=== PATIENT | female | born 1945 | race Hispanic/Latino ===

== ENCOUNTER 2020-05-11 19:36 | Emergency (ER) | payer MEDICARE, OTHER ==
[2020-05-11 21:05] LABS: #Basophils 0.1 thou/uL (0.0-0.2); #Eosinphils 0.1 thou/uL (0.0-0.7); #Lymphocytes 1.8 thou/uL (1.20-3.40); #Monocytes 0.5 thou/uL (0.11-0.59); #Neutrophils 5.7 thou/uL (1.40-6.50); %Basophils 0.9 % (0.0-1.0); Hemoglobin 10.8 g/dL (12.0-16.0); Mean Corpuscular HGB CONC 33.2 g/dL (32.0-36.0); Mean Corpuscular Hemoglobin 27.6 pg (27.0-31.0); Mean Corpuscular Volume 83.1 fL (78.0-98.0); Mean Platelet Volume 9.9 fL (7.4-10.4); Platelet Count 179 thou/uL (130-400); RBC Distribution Width 12.7 % (11.5-14.5); White Blood Cell (WBC) Count 8.2 thou/uL (4.8-10.8)
[2020-05-11 21:26] LABS: ALT (SGPT) 18 U/L (8-55); AST (SGOT) 18 U/L (5-34); Albumin 3.6 g/dL (3.4-4.8); Alkaline Phosphatase 91 U/L (40-110); Anion Gap 11 mmol/L (10-20); BUN (Urea Nitrogen) 14 mg/dL (9.8-20.1); Bilirubin, Total 0.6 mg/dL (0.2-1.2); Calc. Creatinine Clearance 0 mL/min (70-130); Calcium 9.3 mg/dL (7.8-10.44); Carbon Dioxide 27 mmol/L (23-31); Chloride 98 mmol/L (98-107); Estimated GFR-MDRD 34; Globulin 3.4 g/dL (2.4-3.5); Glucose 297 mg/dL (83-110); Potassium 3.3 mmol/L (3.5-5.1); Sodium 133 mmol/L (136-145)
--- NOTE | 2020-05-11 21:33 | CT ---
CT HEAD WITHOUT CONTRAST; 05/11/20 INDICATIONS: Fall. Comparison made to head CT of 07/16/12. There is cortical atrophy with prominent frontal lobe atrophy. Ventricles have normal size considerin g the degree of atrophy. No evidence of intracranial hemorrhage. No mass or infarct identified. The sinuses appear clear. IMPRESSION: No acute intracranial process. POS: AGW
--- NOTE | 2020-05-11 21:35 | CT ---
CT CERVICAL SPINE: 05/11/20 INDICATIONS: Fall with injury. Cervical vertebrae maintain height and alignment. There are mild to moderate degenerative changes pre sent throughout the cervical spine with loss of disc space, spondylosis, and osteophytes from the cer vical vertebrae. There is no evidence of cervical spine fracture. IMPRESSION: 1. Degenerative changes of the cervical spine. No evidence of cervical spine fracture. 2. Incidentally noted are numerous nodules within the thyroid. There is a calcified nodule in th e inferior right thyroid lobe. POS: AGW
--- NOTE | 2020-05-11 21:40 | RAD ---
PORTABLE CHEST: 05/11/20 HISTORY: Fall. Lungs are clear. No infiltrate. Heart and mediastinum unremarkable. IMPRESSION: No acute process. POS: AGW
--- NOTE | 2020-05-11 21:41 | RAD ---
RIGHT HIP: 05/11/20 Two views. HISTORY: Fall with injury to hip. No fracture identified. Mild degenerative change. IMPRESSION: No acute fracture identified. POS: AGW
[2020-05-11 22:57] LABS: Bilirubin Negative (Negative); Blood, Urine Negative (Negative); Clarity Clear (Clear); Glucose, Urine (Dipstick) 500 mg/dL (Negative); Ketone, Urine Negative (Negative); Leukocyte 25 Leu/uL (Negative); Nitrite Negative (Negative); Protein, Urine (Dipstick) Negative (Neg-Trace); RBC/HPF 0-3 HPF (0-3); Specific Gravity, Urine 1.006 (1.002-1.036); Squamous Epithelial None Seen HPF (0-3); Urobilinogen Normal mg/dL (Less than 2); WBC/HPF 0-3 HPF (0-3)
[2020-05-11 23:08] LABS: Bacteria/HPF Rare-Few HPF (None Seen)
== END 2020-05-11 23:59 | disposition home or self-care (01) ==
LOC: ERS 19:36
DX: S09.90XA Unspecified injury of head, initial encounter (principal); M25.551 Pain in right hip; E11.9 Type 2 diabetes mellitus without complications; I10 Essential (primary) hypertension; E78.00 Pure hypercholesterolemia, unspecified; Z79.84 Long term (current) use of oral hypoglycemic drugs; Z79.899 Other long term (current) drug therapy; W18.11XA Fall from or off toilet without subsequent striking against object, initial encounter
CPT/HCPCS: 36415; 70450; 71045; 72125; 80053; 81003; 81015; 84484; 85025; 93005

== ENCOUNTER 2020-05-15 10:26 | Inpatient (IN) | payer MEDICARE, OTHER ==
--- NOTE | 2020-05-15 11:22 | CT ---
EXAM: CT brain without contrast HISTORY: Fall and altered mental status. COMPARISON: 05/11/2020 TECHNIQUE: Multiple contiguous axial images were obtained and a CT of the brain without contrast. FINDINGS: There are scattered hypodensities in the subcortical and periventricular white matter consi stent with small vessel ischemic disease. There is no evidence of hydrocephalus, intracranial hemorrhage, or extra-axial fluid collection. The calvarium and overlying soft tissues are unremarkable. The visualized paranasal sinuses and masto id air cells are well aerated. IMPRESSION: No evidence of acute intracranial abnormality Dr. Torres notified of the findings at 11:20 AM on 05/15/2020.
--- NOTE | 2020-05-15 11:44 | RAD ---
EXAM: Single view of the chest HISTORY: Fever and chills COMPARISON: 05/11/2020 FINDINGS: Single view of the chest shows a normal sized cardiomediastinal silhouette. There is no chantale dence of consolidation, mass, or pleural effusion. The bones are unremarkable IMPRESSION: No evidence of acute cardiopulmonary disease
[2020-05-15 11:45] LABS: ALT (SGPT) 13 U/L (8-55); AST (SGOT) 13 U/L (5-34); Albumin 3.8 g/dL (3.4-4.8); Alkaline Phosphatase 97 U/L (40-110); Anion Gap 14 mmol/L (10-20); BUN (Urea Nitrogen) 16 mg/dL (9.8-20.1); Bilirubin, Total 0.8 mg/dL (0.2-1.2); Calc. Creatinine Clearance 0 mL/min (70-130); Calcium 9.1 mg/dL (7.8-10.44); Carbon Dioxide 27 mmol/L (23-31); Chloride 98 mmol/L (98-107); Estimated GFR-MDRD 35; Globulin 3.8 g/dL (2.4-3.5); Glucose 247 mg/dL (83-110); Magnesium 1.3 mg/dL (1.6-2.6); Potassium 3.8 mmol/L (3.5-5.1); Protein, Total 7.6 g/dL (6.0-8.3); Sodium 135 mmol/L (136-145)
[2020-05-15] MEDS ORDERED: Aspirin 325 MG TAB ONE (11:57)
[2020-05-15 12:08] LABS: CKMB 0.8 ng/mL (0-6.6)
[2020-05-15 12:17] LABS: #Basophils 0.1 thou/uL (0.0-0.2); #Eosinphils 0.1 thou/uL (0.0-0.7); #Lymphocytes 1.7 thou/uL (1.20-3.40); #Monocytes 0.6 thou/uL (0.11-0.59); %Basophils 0.6 % (0.0-1.0); %Eosinophils 0.4 % (0.0-10.0); %Monocytes 4.9 % (0.0-10.0); %Neutrophils 80.1 % (42.0-75.0); Hemoglobin 11.9 g/dL (12.0-16.0); Mean Corpuscular HGB CONC 33.3 g/dL (32.0-36.0); Mean Corpuscular Hemoglobin 27.9 pg (27.0-31.0); Mean Corpuscular Volume 83.8 fL (78.0-98.0); Mean Platelet Volume 9.6 fL (7.4-10.4); Platelet Count 211 thou/uL (130-400); RBC Distribution Width 12.8 % (11.5-14.5); Red Blood Cell (RBC) Count 4.25 mill/uL (4.20-5.40); White Blood Cell (WBC) Count 12.5 thou/uL (4.8-10.8)
[2020-05-15 13:02] LABS: Bilirubin Negative (Negative); Blood, Urine Negative (Negative); Clarity Clear (Clear); Glucose, Urine (Dipstick) 50 mg/dL (Negative); Ketone, Urine Negative (Negative); Leukocyte Negative Leu/uL (Negative); Nitrite Negative (Negative); Protein, Urine (Dipstick) Negative (Neg-Trace); Specific Gravity, Urine 1.011 (1.002-1.036); Urobilinogen Normal mg/dL (Less than 2)
[2020-05-15] MEDS ORDERED: Magnesium 2 GM/50 ML BAG (IN WATER) ONE (13:48)
[2020-05-15 15:24] LABS: Troponin I 0.016 ng/mL (< 0.028)
[2020-05-15 17:23] LABS: Troponin I 0.044 ng/mL (< 0.028)
[2020-05-15] MEDS ORDERED: Dextrose 50% Abboject 50 ML SYRINGE SLOW IVP PRN (18:14)
[2020-05-15] MEDS ORDERED: Dextrose 5% in Water 1,000 ML IV PRN (18:14)
[2020-05-15 18:28] VITALS: BMI 22.4
[2020-05-15] MEDS ORDERED: Lisinopril/Hydrochlorothiazide 20/25 mg Tablet PO SCH (18:45)
[2020-05-15] MEDS: metFORMIN 500 MG TAB PO SCH (20:39)
[2020-05-15] MEDS: Atorvastatin Calcium 40 MG TAB PO SCH (20:39)
[2020-05-15] MEDS: Insulin Glargine 6 UNITS in Pre-Filled Syringe 1 EACH SC SCH (20:40)
[2020-05-15] MEDS ORDERED: Atorvastatin Calcium 40 MG TAB PO SCH (21:00)
--- NOTE | 2020-05-15 23:16 | HP ---
CHIEF COMPLAINT: Generalized weakness and right-sided weakness. HISTORY OF PRESENT ILLNESS: The patient is a 74-year-old female with a history of hypertension and diabetes, who was brought in today with worsening mentation and also expressive aphasia and right-sided weakness. The patient's daughter, Arleth was called. Most of the history was obtained from her. The patient apparently lives with a grandchild and was noted to have some issues with her right lower extremity, which has been ongoing since December. She was getting therapy for this. However, Arleth told me that Sunday morning, the patient woke up and had significant weakness on the right side. She actually fell and at this time, she was brought into the hospital for further evaluation. The patient underwent an evaluation and then was noted to have weakness on the right lower extremity and was discharged home. However, the patient continued to worsen as the day has progressed to the point that she is very fluent in [place] and was unable to speak in Azerbaijani except for a few words. The patient was then brought into the hospital for further evaluation. REVIEW OF SYSTEMS: Unable to obtain. FAMILY HISTORY: No history of heart disease or stroke. PAST MEDICAL HISTORY: She has a history of diabetes, hypertension, high cholesterol, and anemia. ALLERGIES: SHE HAS NO KNOWN DRUG ALLERGIES. MEDICATIONS: Her medications are as of the following, she is on; 1. Lisinopril-hydrochlorothiazide 20-25 one p.o. daily. 2. Metformin 1000 units b.i.d. 3. Bydureon 2 mg injection daily. 4. Atorvastatin 80 mg p.o. daily. PAST SURGICAL HISTORY: She has had a partial hysterectomy per family. PHYSICAL EXAMINATION: VITAL SIGNS: Temperature of 98.8, blood pressure 174/98, pulse 75, respirations are 14, and 96% on room air. GENERAL: She is awake and follow commands. CV: S1 and S2 present. No murmurs, rubs, or gallops. LUNGS: Clear to auscultation. No rhonchi or wheezes noted. ABDOMEN: Soft and nontender. Bowel sounds are present x2. EXTREMITIES: No edema. Pedal pulses are present x2. NEUROLOGIC: Neurovascular weldon, she does have weakness on the right upper extremity and right lower extremity. She is able to move her left upper and left lower extremity. She is able to follow commands. Sensation has decreased on the right side also compared to the left side. SKIN: No cuts, lesions, or bruises noted. LABORATORY DATA: Her laboratory results are as of following; sodium of 135, potassium of 3.8, BUN of 16, creatinine of 1.45, and glucose of 247. Troponins of 0.035. Her COVID rapid test was negative. BNP was 13.2. Magnesium was 1.3, which was replaced. WBCs of 12.5, hemoglobin of 11.9, hematocrit of 35.6, and platelets of 211. Her EKG did not show any acute ST changes. Her CT brain was negative. X-ray did not show any acute abnormalities. She did have a CT of her cervical spine, which indicated that she had numerous nodules within the thyroid. ASSESSMENT AND PLAN: The patient is a 74-year-old female, who presents to the hospital with complaints of weakness of the right side. 1. Stroke. The patient is not on aspirin. We will start her on aspirin. She is already on statin. We will check a lipid panel. We will check a hemoglobin A1c. We will get Neurology on-board. We will get MRI brain, echocardiogram, and carotid Dopplers. She is to be out of the window for any intervention at this point. Neurology again as I mentioned has been consulted. PT and OT and Speech. She did pass her bedside speech eval. 2. Hypertension. We will continue to monitor. I am not going to give treatment; however, this has been a few days. If her blood pressure gets too high, may have to treat her with some antihypertensives or may even resume because this has been going on since Sunday. 3. Diabetes. We will check her Accu-Cheks before meals and at bedtime. We will continue her metformin and start her on a sliding scale p.r.n. insulin. 4. Hyperlipidemia. We will continue her statin. 5. Deep venous thrombosis prophylaxis. We will put the patient on sequential compression devices and subcu Lovenox. Job ID: [id number]
--- NOTE | 2020-05-16 00:29 | ULT ---
CAROTID DOPPLER: Date: 05/15/2020 Ultrasound Doppler study is performed on the extracranial carotid arteries. Color Doppler, spectral a nalysis, and velocity recordings obtained. INDICATION: Stroke. FINDINGS: Ultrasound images show mild intimal thickening and mild echogenic plaque in the bulb regions. Velocity recordings are normal bilaterally. There is no evidence of hemodynamically significant steno sis. Vertebral arteries show antegrade flow. IMPRESSION: 1. Mild intimal thickening and mild echogenic plaque by ultrasound. 2. No evidence of significant stenosis identified by Doppler velocity. POS: AGW
[2020-05-16 05:15] LABS: #Basophils 0.1 thou/uL (0.0-0.2); #Eosinphils 0.1 thou/uL (0.0-0.7); #Lymphocytes 2.5 thou/uL (1.20-3.40); #Monocytes 0.6 thou/uL (0.11-0.59); #Neutrophils 6.4 thou/uL (1.40-6.50); %Basophils 0.8 % (0.0-1.0); %Eosinophils 1.3 % (0.0-10.0); %Lymphocytes 25.7 % (21.0-51.0); %Monocytes 6.2 % (0.0-10.0); %Neutrophils 66.1 % (42.0-75.0); Hemoglobin 11.3 g/dL (12.0-16.0); Mean Corpuscular HGB CONC 32.1 g/dL (32.0-36.0); Mean Corpuscular Hemoglobin 26.6 pg (27.0-31.0); Mean Platelet Volume 9.4 fL (7.4-10.4); Platelet Count 229 thou/uL (130-400); RBC Distribution Width 12.8 % (11.5-14.5); Red Blood Cell (RBC) Count 4.24 mill/uL (4.20-5.40); White Blood Cell (WBC) Count 9.7 thou/uL (4.8-10.8)
[2020-05-16 05:23] LABS: Hemoglobin A1c 10.1 % (4.0-6.0)
[2020-05-16 05:37] LABS: Anion Gap 13 mmol/L (10-20); BUN (Urea Nitrogen) 23 mg/dL (9.8-20.1); Calc. Creatinine Clearance 32 mL/min (70-130); Carbon Dioxide 26 mmol/L (23-31); Cardiac Risk 3.1 (Less than 4.5); Chloride 97 mmol/L (98-107); Cholesterol 124 mg/dl (< 200 Desired); Estimated GFR-MDRD 35; Glucose 194 mg/dL (83-110); HDL Cholesterol 40 mg/dL (>60 Neg Risk); LDL Cholesterol, Calculated 56 mg/dL; Potassium 3.6 mmol/L (3.5-5.1); Sodium 132 mmol/L (136-145); Triglycerides 139 mg/dL (Less than 150)
[2020-05-16] MEDS: HumaLOG 300 UNITS/3 ML VIAL SC PRN ×3 (05:46→18:00)
[2020-05-16] MEDS: metFORMIN 500 MG TAB PO SCH ×2 (08:48→22:05)
[2020-05-16] MEDS: Lisinopril/Hydrochlorothiazide 20/25 mg Tablet PO SCH ×2 (08:48→13:09)
[2020-05-16] MEDS: Aspirin 325 mg Enteric Coated Tablet PO SCH (08:49)
[2020-05-16] MEDS ORDERED: Enoxaparin Sodium 40 MG/0.4 ML SYRINGE SC SCH (09:00)
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
[2020-05-16] MEDS ORDERED: Sodium Chloride 0.9% 1,000 ML IV SCH (12:00)
--- NOTE | 2020-05-16 12:40 | MRI ---
EXAM: MRI of the brain without contrast HISTORY: Altered mental status and fall COMPARISON: CT brain 05/15/2020 TECHNIQUE: Multiplanar multisequence MR images were obtained of the brain without IV contrast. FINDINGS: There is a large area of high FLAIR signal and restricted diffusion in the left frontal lobe in the l eft WU distribution. There are also scattered foci of high T2/FLAIR signal in the subcortical and periventricular white matter, likely secondary to small vessel ischemic disease. There is no evidence of intracranial hemorrhage. No hydronephrosis. No extra-axial fluid collection or intracranial hemorrhage. The expected flow voids are present at the skull base. There is questionable asymmetry in the distal branches of the anterior cerebral arteries. Corpus callosum, pituitary, and craniocervical junction are within normal limits. The calvarium and overlying soft tissues are unremarkable. The paranasal sinuses and mastoid air cells are well aerated. IMPRESSION: Acute left WU infarction.
--- NOTE | 2020-05-16 13:56 | CON ---
DATE OF CONSULTATION: 05/15/2020 CONSULTING PHYSICIAN: Hospitalist Service. IMPRESSION: 1. Probable small vessel stroke with mild right-sided weakness. 2. Diabetes. 3. Hypertension. PLAN: 1. Aspirin has been started. 2. Continue the statin. 3. PT and OT evaluations to determine whether inpatient rehab is needed. HISTORY OF PRESENT ILLNESS: Ms. Sood is a 74-year-old female with known history of hypertension and diabetes. She was noted by her family to have some new right-sided weakness. Initial CT scan of the brain showed some cerebral atrophy, but no evidence of hemorrhage or focal ischemic injury. Her EKG showed a sinus rhythm. Her carotid ultrasound did not show any stenosis. She is Jamaican-speaking only. She would follow commands reasonably well. She has been started on aspirin since her admission. PAST HISTORY: As noted. ALLERGIES: NONE. SOCIAL HISTORY: No tobacco or alcohol reported. FAMILY HISTORY: As per chart is unremarkable. REVIEW OF SYSTEMS: Could not be performed due to her inability to speak Danish. PHYSICAL EXAMINATION: VITAL SIGNS: Blood pressure 150/80, pulse 80, respirations 17, and temperature 97.8. HEENT: Pupils are equal and reactive. Conjunctivae are clear. Oropharynx clear. NECK: Supple. CHEST: Clear. ABDOMEN: Soft and nontender. EXTREMITIES: Without cyanosis or edema. SKIN: Clear. NEUROLOGIC: She was awake and cooperative. There was no dysarthria noted. Her face appeared to be symmetric without any deficits in cranial nerves. Motor exam showed some antigravity strength on the right side, albeit it was a bit weak compared to the opposite. Sensation was grossly intact. Plantar responses were downgoing. Gait was not tested. LABORATORY STUDIES: Unremarkable CBC. Serum chemistry showed a blood glucose of 194. Cholesterol ratio is 3.1. Urine was clear. COVID test was negative. CT of the brain was reviewed. SUMMARY: This is a 74-year-old woman with mild right-sided deficit suggesting a small stroke. There is no evidence of hemorrhage. She is going down for an MRI. I agree with your management. Job ID: [id number]
[2020-05-16] MEDS: Insulin Glargine 6 UNITS in Pre-Filled Syringe 1 EACH SC SCH (22:05)
[2020-05-16] MEDS: Atorvastatin Calcium 40 MG TAB PO SCH (22:05)
[2020-05-17] MEDS: metFORMIN 500 MG TAB PO SCH ×2 (08:31→21:15)
[2020-05-17] MEDS: Lisinopril 20 MG TAB PO SCH (08:31)
[2020-05-17] MEDS: Aspirin 325 mg Enteric Coated Tablet PO SCH (08:31)
[2020-05-17] MEDS: Enoxaparin Sodium 30 MG/0.3 ML SYRINGE SC SCH (08:32)
--- NOTE | 2020-05-17 10:43 | PDOC.HOSPP ---
- Subjective Encounter Date: 05/17/20 Encounter Time: 07:00 Subjective: Patient seen and examined bedside today, no overnight event, patient is able to tell her name but appears slightly disoriented, she is weak on the right-hand side - Objective Vital Signs & Weight: Vital Signs (12 hours) Temp Pulse Resp BP BP BP BP 05/17/20 09:58 155/79 H 151/80 H 05/17/20 08:31 160/81 H 05/17/20 07:19 98.4 F 85 16 160/81 H 05/17/20 04:51 98.5 F 85 18 150/70 H 05/17/20 01:27 98.5 F 84 17 158/79 H Pulse Ox 05/17/20 09:58 05/17/20 08:31 05/17/20 07:19 95 05/17/20 04:51 94 L 05/17/20 01:27 96 Weight Weight 130 lb 7 oz I&O: 05/16/20 05/17/20 05/18/20 06:59 06:59 06:59 Intake Total 720 Balance 720 Result Diagrams: 05/16/20 05:03 05/16/20 05:03 Radiology Reviewed by me: Yes (All radiological investigations reviewed including MRI which shows left WU) EKG Reviewed by me: Yes Hospitalist ROS - Review of Systems Constitutional: denies: fever, chills, sweats, weakness, malaise, other ENT: denies: ear pain, ear discharge, nose pain, nose discharge, nose congestion , mouth pain, mouth swelling, throat pain, throat swelling, other Respiratory: denies: cough, dry, shortness of breath, hemoptysis, SOB with excertion, pleuritic pain, sputum, wheezing, other Cardiovascular: denies: chest pain, palpitations, orthopnea, paroxysmal noc. dyspnea, edema, light headedness, other Gastrointestinal: denies: nausea, vomiting, abdominal pain, diarrhea, constipation, melena, hematochezia, other Genitourinary: denies: dysuria, frequency, incontinence, hematuria, retention, other Musculoskeletal: denies: neck pain, shoulder pain, arm pain, back pain, hand pain, leg pain, foot pain, other - Medication Medications: Active Medications Generic Name Dose Route Start Last Admin Trade Name Freq PRN Reason Stop Dose Admin Aspirin 325 mg 05/16/20 09:00 05/17/20 08:31 Ecotrin PO 325 mg DAILY LORIN Administration Atorvastatin Calcium 80 mg 05/15/20 21:00 05/16/20 22:05 Lipitor PO 80 mg HS LORIN Administration Enoxaparin Sodium 30 mg 05/17/20 09:00 05/17/20 08:32 Lovenox SC 30 mg 0900 LORIN Administration Insulin Glargine 6 units/ 0.06 mls @ 0 mls/hr 05/15/20 21:00 05/16/20 22:05 Miscellaneous Medication SC 0.06 mls HS LORIN Administration Insulin Human Lispro 0 units 05/15/20 18:14 05/16/20 18:00 Humalog SC 2 unit .MILD SLIDING SCALE PRN Administration Mild Correctional Scale Lisinopril 40 mg 05/17/20 09:00 05/17/20 08:31 Zestril PO 40 mg DAILY LORIN Administration Metformin HCl 1,000 mg 05/15/20 21:00 05/17/20 08:31 Glucophage PO 1,000 mg BID LORIN Administration Sodium Chloride 10 ml 05/15/20 15:41 05/15/20 20:39 Flush - Normal Saline IVF 10 ml PRN PRN Administration Saline Flush - Exam General Appearance: NAD, awake alert Eye: PERRL, anicteric sclera ENT: normocephalic atraumatic, no oropharyngeal lesions Neck: supple, symmetric, no JVD, no thyromegaly Heart: RRR, no murmur, no gallops, no rubs Respiratory: CTAB, no wheezes, no rales, no ronchi Gastrointestinal: soft, non-tender, non-distended, normal bowel sounds Extremities: no cyanosis, no clubbing Skin: normal turgor, no lesions Neurological: speech deficit Neurological - other findings: Right-sided weakness Musculoskeletal: normal tone, normal strength Psychiatric: normal affect, normal behavior Hosp A/P - Plan old records reviewed/req, PT/OT, 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 daily, Lipitor 80 mg p.o. nightly, Continue lisinopril 40 mg daily and with that patient blood pressure is well controlled and acceptable Continue metformin 1000 mg p.o. twice daily, her blood sugar appropriately controlled Continue PT OT and speech therapy and patient will need rehab placement upon discharge
--- NOTE | 2020-05-17 13:14 | PDOC.HOSPP ---
- Subjective Encounter Date: 05/17/20 Subjective: NEUROLOGY PROGRESS NOTE Patient alert, awake and oriented to person only. Follows commands intermittently. - Objective Vital Signs & Weight: Vital Signs (12 hours) Temp Pulse Pulse Resp BP BP BP 05/17/20 11:25 98.8 F 88 19 05/17/20 09:58 155/79 H 151/80 H 05/17/20 08:58 89 158/58 H 05/17/20 08:32 05/17/20 08:31 160/81 H 05/17/20 07:19 98.4 F 85 16 05/17/20 04:51 98.5 F 85 18 05/17/20 01:27 98.5 F 84 17 BP Pulse Ox 05/17/20 11:25 162/84 H 97 05/17/20 09:58 05/17/20 08:58 05/17/20 08:32 95 05/17/20 08:31 05/17/20 07:19 160/81 H 95 05/17/20 04:51 150/70 H 94 L 05/17/20 01:27 158/79 H 96 Weight Admit Weight 130 lb 6.992 oz Weight 130 lb 6.992 oz I&O: 05/16/20 05/17/20 05/18/20 06:59 06:59 06:59 Intake Total 720 Balance 720 Result Diagrams: 05/16/20 05:03 05/16/20 05:03 Radiology Reviewed by me: Yes EKG Reviewed by me: Yes Hospitalist ROS - Review of Systems ROS unobtainable: due to mental status (receptive aphasia) Neurological: reports: weakness, numbness, incoordination, change in speech, confusion - Medication Medications: Active Medications Generic Name Dose Route Start Last Admin Trade Name Freq PRN Reason Stop Dose Admin Aspirin 325 mg 05/16/20 09:00 05/17/20 08:31 Ecotrin PO 325 mg DAILY LORIN Administration Atorvastatin Calcium 80 mg 05/15/20 21:00 05/16/20 22:05 Lipitor PO 80 mg HS LORIN Administration Enoxaparin Sodium 30 mg 05/17/20 09:00 05/17/20 08:32 Lovenox SC 30 mg 0900 LORIN Administration Insulin Glargine 6 units/ 0.06 mls @ 0 mls/hr 05/15/20 21:00 05/16/20 22:05 Miscellaneous Medication SC 0.06 mls HS LORIN Administration Insulin Human Lispro 0 units 05/15/20 18:14 05/16/20 18:00 Humalog SC 2 unit .MILD SLIDING SCALE PRN Administration Mild Correctional Scale Lisinopril 40 mg 05/17/20 09:00 05/17/20 08:31 Zestril PO 40 mg DAILY LORIN Administration Metformin HCl 1,000 mg 05/15/20 21:00 05/17/20 08:31 Glucophage PO 1,000 mg BID LORIN Administration Sodium Chloride 10 ml 05/15/20 15:41 05/15/20 20:39 Flush - Normal Saline IVF 10 ml PRN PRN Administration Saline Flush - Exam General Appearance: awake alert Eye: PERRL ENT: normocephalic atraumatic Neck: supple Heart: RRR Respiratory: CTAB Gastrointestinal: soft Extremities: no cyanosis Skin: normal turgor Neurological: no new deficit, hemiplegia, speech deficit Neurological - other findings: right hemiparesis Musculoskeletal: no muscle wasting Psychiatric: oriented to person Hosp A/P (1) Acute CVA (cerebrovascular accident) Code(s): I63.9 - CEREBRAL INFARCTION, UNSPECIFIED Status: Acute (2) Hypertension Code(s): I10 - ESSENTIAL (PRIMARY) HYPERTENSION Status: Acute (3) Hyperlipidemia Code(s): E78.5 - HYPERLIPIDEMIA, UNSPECIFIED Status: Acute - Plan PT/OT, speech therapy, DVT proph w/lovenox 74 year old with right hemiparesis and receptive aphasia.Imaging positive for acute stroke. MRI Brain showed acute left WU infarction. Carotid dopplers did not reveal hemodynamically significant stenosis. 2D Echo did not show thrombus or PFO. EF 50-55%. Neurochecks every 4 hours. Continue aspirin and high intensity statin for secondary stroke prevention Telemetry. Monitor BP. Continue home medications. PT/OT/Speech. EEG for intermittent confusion. Continue medical management per primary team. Plan discussed during stroke rounds.
[2020-05-17] MEDS: Insulin Glargine 6 UNITS in Pre-Filled Syringe 1 EACH SC SCH (21:14)
[2020-05-17] MEDS: Atorvastatin Calcium 40 MG TAB PO SCH (21:14)
[2020-05-18 05:46] LABS: Anion Gap 14 mmol/L (10-20); BUN (Urea Nitrogen) 35 mg/dL (9.8-20.1); Calc. Creatinine Clearance 28 mL/min (70-130); Calcium 9.4 mg/dL (7.8-10.44); Carbon Dioxide 26 mmol/L (23-31); Chloride 98 mmol/L (98-107); Estimated GFR-MDRD 31; Glucose 192 mg/dL (83-110); Potassium 3.9 mmol/L (3.5-5.1); Sodium 134 mmol/L (136-145)
[2020-05-18] MEDS: HumaLOG 300 UNITS/3 ML VIAL SC PRN ×2 (05:50→11:08)
[2020-05-18] MEDS ORDERED: Bisacodyl 5 MG TAB PO PRN (07:36)
[2020-05-18] MEDS ORDERED: Labetalol HCl 100 MG/20 ML VIAL SLOW IVP PRN (07:36)
[2020-05-18] MEDS ORDERED: Sodium Chloride 0.65% Nasal 44 ML BOT EA NARE PRN (07:36)
[2020-05-18] MEDS ORDERED: Cepastat Lozenges 1 LOZ PO PRN (07:36)
[2020-05-18] MEDS ORDERED: Diabetic Tussin 200 MG/10 ML UDCUP PO PRN (07:36)
[2020-05-18] MEDS ORDERED: Acetaminophen 500 MG TAB PO PRN (07:36)
[2020-05-18] MEDS ORDERED: Loperamide HCl 2 MG CAP PO PRN (07:36)
[2020-05-18] MEDS ORDERED: Senokot S 8.6-50 MG TAB PO PRN (07:36)
[2020-05-18] MEDS ORDERED: Ondansetron ODT 4 MG TAB PO PRN (07:36)
[2020-05-18] MEDS ORDERED: Loratadine 10 MG TAB PO PRN (07:36)
[2020-05-18] MEDS ORDERED: Calcium Carbonate 500 MG ChewTAB PO PRN (07:36)
[2020-05-18] MEDS: metFORMIN 500 MG TAB PO SCH ×2 (08:41→21:29)
[2020-05-18] MEDS: Aspirin 325 mg Enteric Coated Tablet PO SCH (08:42)
[2020-05-18] MEDS: Lisinopril 20 MG TAB PO SCH (08:42)
[2020-05-18] MEDS: Enoxaparin Sodium 30 MG/0.3 ML SYRINGE SC SCH (08:42)
[2020-05-18] MEDS: Sodium Chloride 0.9% 1,000 ML IV SCH (10:21)
--- NOTE | 2020-05-18 12:06 | PDOC.HOSPP ---
- Subjective Encounter Date: 05/18/20 Encounter Time: 07:30 Subjective: Patient seen and examined bedside today, patient is getting EEG today, today patient's creatinine has increased - Objective Vital Signs & Weight: Vital Signs (12 hours) Temp Pulse Resp BP Pulse Ox 05/18/20 10:58 98.7 F 87 16 133/76 96 05/18/20 07:07 98.5 F 83 15 163/81 H 95 05/18/20 03:34 98.4 F 85 20 148/76 H 94 L Weight Admit Weight 130 lb 6.992 oz Weight 130 lb 6.992 oz I&O: 05/17/20 05/18/20 05/19/20 06:59 06:59 06:59 Intake Total 720 75 Output Total 10 Balance 720 65 Result Diagrams: 05/16/20 05:03 05/18/20 04:55 Additional Labs: Accuchecks 05/17/20 05/17/20 05/16/20 10:28 05:39 21:03 POC Glucose 195 H 158 H 237 H 05/16/20 05/16/20 05/16/20 17:40 10:45 05:28 POC Glucose 183 H 200 H 201 H 05/15/20 05/15/20 20:42 11:01 POC Glucose 233 H 243 H Hospitalist ROS - Review of Systems ENT: denies: ear pain, ear discharge, nose pain, nose discharge, nose congestion , mouth pain, mouth swelling, throat pain, throat swelling, other Respiratory: denies: cough, dry, shortness of breath, hemoptysis, SOB with excertion, pleuritic pain, sputum, wheezing, other Cardiovascular: denies: chest pain, palpitations, orthopnea, paroxysmal noc. dyspnea, edema, light headedness, other Gastrointestinal: denies: nausea, vomiting, abdominal pain, diarrhea, constipation, melena, hematochezia, other Genitourinary: denies: dysuria, frequency, incontinence, hematuria, retention, other Musculoskeletal: denies: neck pain, shoulder pain, arm pain, back pain, hand pain, leg pain, foot pain, other - Medication Medications: Active Medications Generic Name Dose Route Start Last Admin Trade Name Freq PRN Reason Stop Dose Admin Aspirin 325 mg 05/16/20 09:00 05/18/20 08:42 Ecotrin PO 325 mg DAILY LORIN Administration Atorvastatin Calcium 80 mg 05/15/20 21:00 05/17/20 21:14 Lipitor PO 80 mg HS LORIN Administration Enoxaparin Sodium 30 mg 05/17/20 09:00 05/18/20 08:42 Lovenox SC 30 mg 0900 LORIN Administration Sodium Chloride 1,000 mls @ 50 mls/hr 05/18/20 07:45 05/18/20 10:21 Normal Saline 0.9% IV 1,000 mls .Q20H LORIN Administration Insulin Human Lispro 0 units 05/15/20 18:14 05/18/20 11:08 Humalog SC 3 unit .MILD SLIDING SCALE PRN Administration Mild Correctional Scale Lisinopril 40 mg 05/17/20 09:00 05/18/20 08:42 Zestril PO 40 mg DAILY LORIN Administration Metformin HCl 1,000 mg 05/15/20 21:00 05/18/20 08:41 Glucophage PO 1,000 mg BID LORIN Administration Sodium Chloride 10 ml 05/15/20 15:41 05/15/20 20:39 Flush - Normal Saline IVF 10 ml PRN PRN Administration Saline Flush - Exam General Appearance: NAD, awake alert Eye: PERRL, anicteric sclera ENT: normocephalic atraumatic, no oropharyngeal lesions Neck: supple, symmetric, no JVD, no thyromegaly Heart: RRR, no murmur, no gallops, no rubs Respiratory: CTAB, no wheezes, no rales, no ronchi Gastrointestinal: soft, non-tender, non-distended, normal bowel sounds Extremities: no cyanosis, no clubbing Skin: normal turgor, no lesions Musculoskeletal: normal tone, normal strength Psychiatric: normal affect, normal behavior Hosp A/P - Plan old records reviewed/req, PT/OT, social science teacher, speech therapy, DVT proph w/ lovenox Assessment Acute left WU infarction Diastolic dysfunction Acute on chronic CKD stage III Diabetes type 2 Hypertension Normocytic normochromic anemia Mild hyponatremia Plan EEG today Given elevation in her creatinine will start gentle IV fluids at NS at 50 mL/h and will repeat labs tomorrow Continue PT OT and speech therapy and patient is awaiting rehab placement If rehab accepted then will consider discharge tomorrow Medication reviewed and continue provide symptomatic and supportive care
--- NOTE | 2020-05-18 12:14 | EEG ---
DATE OF SERVICE: 05/18/2020 ATTENDING PHYSICIAN: Laurie Darby MD This EEG was performed using 24-channel [employer] video digital EEG machine with 24-disk electrodes. This was an extended 2 hours 5 minutes of inpatient video EEG recording. Digital analysis of the EEG was done for spike and seizure detection which revealed no abnormalities. BACKGROUND: There is a nonsustained posterior background rhythm of 8-8.5 Hz. Minimal reactivity is seen with eye opening and closure. HYPERVENTILATION: No significant response seen with hyperventilation. PHOTIC STIMULATION: Bioccipital symmetric driving responses observed. SLEEP: Drowsiness and sleep are observed. EEG DIAGNOSES: 1. Occasional irregular theta activity seen during the recording. 2. Nonsustained posterior background rhythm. CLINICAL INTERPRETATION: This EEG is consistent with mild generalized nonspecific cerebral dysfunction. No ictal or interictal epileptiform abnormalities seen during the recording. Job ID: [id number]
[2020-05-18] MEDS: Ondansetron PF 4 MG/2 ML Vial IVP PRN ×2 (12:19→21:29)
[2020-05-18] MEDS: Atorvastatin Calcium 40 MG TAB PO SCH (21:29)
[2020-05-19] MEDS: Insulin Glargine 10 UNITS in Pre-Filled Syringe 1 EACH SC SCH ×2 (02:35→21:02)
[2020-05-19 04:52] LABS: #Basophils 0.1 thou/uL (0.0-0.2); #Eosinphils 0.1 thou/uL (0.0-0.7); #Lymphocytes 2.2 thou/uL (1.20-3.40); #Monocytes 0.6 thou/uL (0.11-0.59); #Neutrophils 6.1 thou/uL (1.40-6.50); %Basophils 0.8 % (0.0-1.0); %Eosinophils 1.4 % (0.0-10.0); %Lymphocytes 24.5 % (21.0-51.0); %Monocytes 6.3 % (0.0-10.0); Hemoglobin 11.1 g/dL (12.0-16.0); Mean Corpuscular HGB CONC 32.3 g/dL (32.0-36.0); Mean Corpuscular Hemoglobin 26.9 pg (27.0-31.0); Mean Corpuscular Volume 83.5 fL (78.0-98.0); Mean Platelet Volume 9.3 fL (7.4-10.4); Platelet Count 280 thou/uL (130-400); RBC Distribution Width 12.7 % (11.5-14.5); Red Blood Cell (RBC) Count 4.11 mill/uL (4.20-5.40); White Blood Cell (WBC) Count 9.1 thou/uL (4.8-10.8)
[2020-05-19 05:15] LABS: Anion Gap 11 mmol/L (10-20); BUN (Urea Nitrogen) 37 mg/dL (9.8-20.1); Calc. Creatinine Clearance 32 mL/min (70-130); Calcium 8.9 mg/dL (7.8-10.44); Carbon Dioxide 26 mmol/L (23-31); Chloride 100 mmol/L (98-107); Estimated GFR-MDRD 36; Glucose 181 mg/dL (83-110); Potassium 3.8 mmol/L (3.5-5.1); Sodium 133 mmol/L (136-145)
[2020-05-19] MEDS: Sodium Chloride 0.9% 1,000 ML IV SCH (06:01)
[2020-05-19] MEDS: Enoxaparin Sodium 30 MG/0.3 ML SYRINGE SC SCH (09:48)
[2020-05-19] MEDS: metFORMIN 500 MG TAB PO SCH ×2 (09:48→21:02)
[2020-05-19] MEDS: Aspirin 325 mg Enteric Coated Tablet PO SCH (09:48)
[2020-05-19] MEDS: Lisinopril 20 MG TAB PO SCH (09:48)
[2020-05-19] MEDS: Ondansetron PF 4 MG/2 ML Vial IVP PRN (09:48)
[2020-05-19] MEDS: HumaLOG 300 UNITS/3 ML VIAL SC PRN (10:23)
--- NOTE | 2020-05-19 14:26 | PDOC.HOSPP ---
- Subjective Encounter Date: 05/19/20 Subjective: NEUROLOGY PROGRESS NOTE Patient alert, awake and oriented to person only. . - Objective Vital Signs & Weight: Vital Signs (12 hours) Temp Pulse Resp BP BP Pulse Ox 05/19/20 11:27 98.5 F 76 16 150/75 H 92 L 05/19/20 08:15 97.6 F 76 18 158/77 H 98 05/19/20 04:00 98.3 F 81 16 153/81 H 96 Weight Admit Weight 130 lb 6.992 oz Weight 130 lb 6.992 oz I&O: 05/18/20 05/19/20 05/20/20 06:59 06:59 06:59 Intake Total 75 427 Output Total 10 Balance 65 427 Result Diagrams: 05/19/20 04:39 05/19/20 04:39 Additional Labs: Accuchecks 05/17/20 16:41 POC Glucose 198 H Radiology Reviewed by me: Yes EKG Reviewed by me: Yes Hospitalist ROS - Review of Systems ROS unobtainable: due to mental status - Medication Medications: Active Medications Generic Name Dose Route Start Last Admin Trade Name Freq PRN Reason Stop Dose Admin Aspirin 325 mg 05/16/20 09:00 05/19/20 09:48 Ecotrin PO 325 mg DAILY LORIN Administration Atorvastatin Calcium 80 mg 05/15/20 21:00 05/18/20 21:29 Lipitor PO 80 mg HS LORIN Administration Enoxaparin Sodium 30 mg 05/17/20 09:00 05/19/20 09:48 Lovenox SC 30 mg 0900 LORIN Administration Sodium Chloride 1,000 mls @ 50 mls/hr 05/18/20 07:45 05/19/20 06:01 Normal Saline 0.9% IV 1,000 mls .Q20H LORIN Administration Insulin Glargine 10 units/ 0.1 mls @ 0 mls/hr 05/18/20 21:00 05/19/20 02:35 Miscellaneous Medication SC Not Given HS LORIN Insulin Human Lispro 0 units 05/15/20 18:14 05/19/20 10:23 Humalog SC 3 unit .MILD SLIDING SCALE PRN Administration Mild Correctional Scale Lisinopril 40 mg 05/17/20 09:00 05/19/20 09:48 Zestril PO 40 mg DAILY LORIN Administration Metformin HCl 1,000 mg 05/15/20 21:00 05/19/20 09:48 Glucophage PO 1,000 mg BID LORIN Administration Ondansetron HCl 4 mg 05/18/20 07:36 05/19/20 09:48 Zofran IVP 4 mg Q6H PRN Administration Nausea/Vomiting Sodium Chloride 10 ml 05/15/20 15:41 05/15/20 20:39 Flush - Normal Saline IVF 10 ml PRN PRN Administration Saline Flush - Exam General Appearance: awake alert Eye: PERRL ENT: normocephalic atraumatic Neck: supple Heart: RRR Respiratory: CTAB Gastrointestinal: soft Extremities: no cyanosis Skin: normal turgor Neurological: no new deficit, facial droop, hemiplegia, speech deficit Psychiatric: oriented to person Hosp A/P (1) Acute CVA (cerebrovascular accident) Code(s): I63.9 - CEREBRAL INFARCTION, UNSPECIFIED Status: Acute (2) Hypertension Code(s): I10 - ESSENTIAL (PRIMARY) HYPERTENSION Status: Acute (3) Hyperlipidemia Code(s): E78.5 - HYPERLIPIDEMIA, UNSPECIFIED Status: Acute - Plan PT/OT, speech therapy 74 year old with right hemiparesis and receptive aphasia. Imaging positive for acute stroke.Stroke work up completed. Clinically stable. Possible discharge to rehab today. MRI Brain showed acute left WU infarction. Carotid dopplers did not reveal hemodynamically significant stenosis. 2D Echo did not show thrombus or PFO. EF 50-55%. Continue aspirin and high intensity statin for secondary stroke prevention Telemetry. Monitor BP. Continue home medications. PT/OT/Speech. EEG reviewed and was negative for seizure activity. Continue medical management per primary team. Plan discussed during stroke rounds.
--- NOTE | 2020-05-19 16:16 | PDOC.HOSPP ---
- Subjective Encounter Date: 05/19/20 Subjective: Patient does not talk much. She denies any needs. - Objective Vital Signs & Weight: Vital Signs (12 hours) Temp Pulse Resp BP Pulse Ox 05/19/20 15:38 98.4 F 78 18 176/87 H 94 L 05/19/20 11:27 98.5 F 76 16 150/75 H 92 L 05/19/20 08:15 97.6 F 76 18 158/77 H 98 Weight Admit Weight 130 lb 6.992 oz Weight 130 lb 6.992 oz I&O: 05/18/20 05/19/20 05/20/20 06:59 06:59 06:59 Intake Total 75 427 Output Total 10 1 Balance 65 427 -1 Result Diagrams: 05/19/20 04:39 05/19/20 04:39 Hospitalist ROS - Medication Medications: Active Medications Generic Name Dose Route Start Last Admin Trade Name Freq PRN Reason Stop Dose Admin Aspirin 325 mg 05/16/20 09:00 05/19/20 09:48 Ecotrin PO 325 mg DAILY LORIN Administration Atorvastatin Calcium 80 mg 05/15/20 21:00 05/18/20 21:29 Lipitor PO 80 mg HS LORIN Administration Enoxaparin Sodium 30 mg 05/17/20 09:00 05/19/20 09:48 Lovenox SC 30 mg 0900 LORIN Administration Sodium Chloride 1,000 mls @ 50 mls/hr 05/18/20 07:45 05/19/20 06:01 Normal Saline 0.9% IV 1,000 mls .Q20H LORIN Administration Insulin Glargine 10 units/ 0.1 mls @ 0 mls/hr 05/18/20 21:00 05/19/20 02:35 Miscellaneous Medication SC Not Given HS LORIN Insulin Human Lispro 0 units 05/15/20 18:14 05/19/20 10:23 Humalog SC 3 unit .MILD SLIDING SCALE PRN Administration Mild Correctional Scale Lisinopril 40 mg 05/17/20 09:00 05/19/20 09:48 Zestril PO 40 mg DAILY LORIN Administration Metformin HCl 1,000 mg 05/15/20 21:00 05/19/20 09:48 Glucophage PO 1,000 mg BID LORIN Administration Ondansetron HCl 4 mg 05/18/20 07:36 05/19/20 09:48 Zofran IVP 4 mg Q6H PRN Administration Nausea/Vomiting Sodium Chloride 10 ml 05/15/20 15:41 05/15/20 20:39 Flush - Normal Saline IVF 10 ml PRN PRN Administration Saline Flush - Exam General Appearance: NAD, awake alert Heart: RRR, no murmur, no gallops, no rubs, normal peripheral pulses Respiratory: CTAB, no wheezes, no rales, no ronchi, normal chest expansion, no tachypnea, normal percussion Gastrointestinal: soft, non-tender, non-distended, normal bowel sounds, no palpable masses, no hepatomegaly, no splenomegaly, no bruit Extremities: no cyanosis, no clubbing, no edema Skin: normal turgor Neurological: no focal deficits Musculoskeletal - other findings: R weakness. Follows commands. Some movement in the hand and right foot. Psychiatric: flat affect Hosp A/P (1) Acute CVA (cerebrovascular accident) Code(s): I63.9 - CEREBRAL INFARCTION, UNSPECIFIED Status: Acute (2) Hyperlipidemia Code(s): E78.5 - HYPERLIPIDEMIA, UNSPECIFIED Status: Acute (3) Hypertension Code(s): I10 - ESSENTIAL (PRIMARY) HYPERTENSION Status: Acute - Plan Acute CVA: Continue aspirin and statin. Neurology following. Will move to rehab once a bed becomes available. Hypertension: Continue lisinopril. Tolerating some higher blood pressures in the post acute CVA phase.
[2020-05-19] MEDS: Atorvastatin Calcium 40 MG TAB PO SCH (21:02)
[2020-05-19] MEDS: hydrALAZINE 20 MG/ML VIAL SLOW IVP PRN (21:03)
[2020-05-20] MEDS: Sodium Chloride 0.9% 1,000 ML IV SCH (03:23)
[2020-05-20] MEDS: hydrALAZINE 20 MG/ML VIAL SLOW IVP PRN ×2 (04:12→12:47)
[2020-05-20] MEDS: HumaLOG 300 UNITS/3 ML VIAL SC PRN ×2 (06:18→18:29)
[2020-05-20] MEDS: metFORMIN 500 MG TAB PO SCH ×2 (09:34→20:31)
[2020-05-20] MEDS: Aspirin 325 mg Enteric Coated Tablet PO SCH (09:34)
[2020-05-20] MEDS: Lisinopril 20 MG TAB PO SCH (09:35)
[2020-05-20] MEDS: Enoxaparin Sodium 30 MG/0.3 ML SYRINGE SC SCH (09:38)
--- NOTE | 2020-05-20 12:04 | PDOC.HOSPP ---
- Subjective Encounter Date: 05/20/20 Subjective: NEUROLOGY PROGRESS NOTE Patient alert, awake and oriented to person and place- hospital. - Objective Vital Signs & Weight: Vital Signs (12 hours) Temp Pulse Resp BP BP BP Pulse Ox 05/20/20 11:28 98.1 F 84 14 180/80 H 96 05/20/20 09:35 168/70 H 05/20/20 08:00 97 05/20/20 07:35 98.2 F 82 14 186/87 H 97 05/20/20 05:00 163/69 H 05/20/20 04:12 85 195/102 H 05/20/20 04:00 98.1 F 80 18 190/97 H 98 Weight Admit Weight 130 lb 6.992 oz Weight 130 lb 6.992 oz I&O: 05/19/20 05/20/20 05/21/20 06:59 06:59 06:59 Intake Total 427 455 Output Total 376 Balance 427 79 Result Diagrams: 05/19/20 04:39 05/19/20 04:39 Radiology Reviewed by me: Yes EKG Reviewed by me: Yes Hospitalist ROS - Review of Systems ROS unobtainable: due to mental status (aphasic) - Medication Medications: Active Medications Generic Name Dose Route Start Last Admin Trade Name Freq PRN Reason Stop Dose Admin Aspirin 325 mg 05/16/20 09:00 05/20/20 09:34 Ecotrin PO 325 mg DAILY LORIN Administration Atorvastatin Calcium 80 mg 05/15/20 21:00 05/19/20 21:02 Lipitor PO 80 mg HS LORIN Administration Enoxaparin Sodium 30 mg 05/17/20 09:00 05/20/20 09:38 Lovenox SC 30 mg 0900 LORIN Administration Hydralazine HCl 10 mg 05/16/20 11:56 05/20/20 04:12 Apresoline SLOW IVP 10 mg Q4H PRN Administration Blood Pressure SBP>160 Sodium Chloride 1,000 mls @ 50 mls/hr 05/18/20 07:45 05/20/20 03:23 Normal Saline 0.9% IV 1,000 mls .Q20H LORIN Administration Insulin Glargine 10 units/ 0.1 mls @ 0 mls/hr 05/18/20 21:00 05/19/20 21:02 Miscellaneous Medication SC 0.1 mls HS LORIN Administration Insulin Human Lispro 0 units 05/15/20 18:14 05/20/20 06:18 Humalog SC 2 unit .MILD SLIDING SCALE PRN Administration Mild Correctional Scale Lisinopril 40 mg 05/17/20 09:00 05/20/20 09:35 Zestril PO 40 mg DAILY LORIN Administration Metformin HCl 1,000 mg 05/15/20 21:00 05/20/20 09:34 Glucophage PO 1,000 mg BID LORIN Administration Ondansetron HCl 4 mg 05/18/20 07:36 05/19/20 09:48 Zofran IVP 4 mg Q6H PRN Administration Nausea/Vomiting Sodium Chloride 10 ml 05/15/20 15:41 05/19/20 21:03 Flush - Normal Saline IVF 10 ml PRN PRN Administration Saline Flush - Exam General Appearance: awake alert Eye: PERRL ENT: normocephalic atraumatic Neck: supple Heart: RRR Respiratory: CTAB Gastrointestinal: soft Extremities: no cyanosis Skin: normal turgor Neurological: facial droop, hemiplegia, speech deficit Musculoskeletal: no muscle wasting Psychiatric: oriented to person, oriented to place Hosp A/P (1) Acute CVA (cerebrovascular accident) Code(s): I63.9 - CEREBRAL INFARCTION, UNSPECIFIED Status: Acute (2) Hypertension Code(s): I10 - ESSENTIAL (PRIMARY) HYPERTENSION Status: Acute (3) Hyperlipidemia Code(s): E78.5 - HYPERLIPIDEMIA, UNSPECIFIED Status: Acute - Plan PT/OT, speech therapy 74 year old with right hemiparesis and receptive aphasia. Imaging positive for acute stroke. Stroke work up completed. Clinically stable. Awaiting for discharge to rehab pending bed availability MRI Brain showed acute left WU infarction. Carotid dopplers did not reveal hemodynamically significant stenosis. 2D Echo did not show thrombus or PFO. EF 50-55%. Continue aspirin and high intensity statin for secondary stroke prevention Continue Telemetry. Strict control of BP. Continue home medications. PT/OT/Speech. EEG reviewed and was negative for seizure activity. Continue medical management per primary team. Plan discussed during MDR rounds.
--- NOTE | 2020-05-20 15:21 | PDOC.HOSPP ---
- Subjective Encounter Date: 05/20/20 Subjective: Patient indicates she is doing fine. She has no complaints. - Objective Vital Signs & Weight: Vital Signs (12 hours) Temp Pulse Resp BP BP BP Pulse Ox 05/20/20 13:37 101 H 147/62 H 05/20/20 12:47 88 05/20/20 12:00 88 173/71 H 05/20/20 11:28 98.1 F 84 14 180/80 H 96 05/20/20 09:35 168/70 H 05/20/20 08:00 97 05/20/20 07:35 98.2 F 82 14 186/87 H 97 05/20/20 05:00 163/69 H 05/20/20 04:12 85 195/102 H 05/20/20 04:00 98.1 F 80 18 190/97 H 98 Weight Admit Weight 130 lb 6.992 oz Weight 130 lb 6.992 oz I&O: 05/19/20 05/20/20 05/21/20 06:59 06:59 06:59 Intake Total 427 455 Output Total 376 Balance 427 79 Result Diagrams: 05/19/20 04:39 05/19/20 04:39 Additional Labs: Accuchecks 05/20/20 05/20/20 05/20/20 10:40 05:31 02:11 POC Glucose 130 H 177 H 161 H 05/19/20 05/19/20 05/19/20 20:25 16:46 10:23 POC Glucose 183 H 141 H 250 H 05/19/20 05/18/20 05/18/20 06:09 21:45 16:34 POC Glucose 187 H 226 H 180 H 05/18/20 05/18/20 10:45 05:23 POC Glucose 226 H 192 H Hospitalist ROS - Medication Medications: Active Medications Generic Name Dose Route Start Last Admin Trade Name Freq PRN Reason Stop Dose Admin Aspirin 325 mg 05/16/20 09:00 05/20/20 09:34 Ecotrin PO 325 mg DAILY LORIN Administration Atorvastatin Calcium 80 mg 05/15/20 21:00 05/19/20 21:02 Lipitor PO 80 mg HS LORIN Administration Enoxaparin Sodium 30 mg 05/17/20 09:00 05/20/20 09:38 Lovenox SC 30 mg 0900 LORIN Administration Hydralazine HCl 10 mg 05/16/20 11:56 05/20/20 12:47 Apresoline SLOW IVP 10 mg Q4H PRN Administration Blood Pressure SBP>160 Sodium Chloride 1,000 mls @ 50 mls/hr 05/18/20 07:45 05/20/20 03:23 Normal Saline 0.9% IV 1,000 mls .Q20H LORIN Administration Insulin Glargine 10 units/ 0.1 mls @ 0 mls/hr 05/18/20 21:00 05/19/20 21:02 Miscellaneous Medication SC 0.1 mls HS LORIN Administration Insulin Human Lispro 0 units 05/15/20 18:14 05/20/20 06:18 Humalog SC 2 unit .MILD SLIDING SCALE PRN Administration Mild Correctional Scale Lisinopril 40 mg 05/17/20 09:00 05/20/20 09:35 Zestril PO 40 mg DAILY LORIN Administration Metformin HCl 1,000 mg 05/15/20 21:00 05/20/20 09:34 Glucophage PO 1,000 mg BID LORIN Administration Ondansetron HCl 4 mg 05/18/20 07:36 05/19/20 09:48 Zofran IVP 4 mg Q6H PRN Administration Nausea/Vomiting Sodium Chloride 10 ml 05/15/20 15:41 05/19/20 21:03 Flush - Normal Saline IVF 10 ml PRN PRN Administration Saline Flush - Exam General Appearance: NAD, awake alert Heart: RRR, no murmur, no gallops, no rubs, normal peripheral pulses Respiratory: CTAB, no wheezes, no rales, no ronchi, normal chest expansion, no tachypnea, normal percussion Gastrointestinal: soft, non-tender, non-distended, normal bowel sounds, no palpable masses, no hepatomegaly, no splenomegaly, no bruit Extremities: no cyanosis, no clubbing, no edema Neurological - other findings: Can move her right hand and fingers and wiggle right toes. Prox weakness Hosp A/P (1) Acute CVA (cerebrovascular accident) Code(s): I63.9 - CEREBRAL INFARCTION, UNSPECIFIED Status: Acute (2) Hyperlipidemia Code(s): E78.5 - HYPERLIPIDEMIA, UNSPECIFIED Status: Acute (3) Hypertension Code(s): I10 - ESSENTIAL (PRIMARY) HYPERTENSION Status: Acute - Plan Acute CVA: Continue aspirin and statin. Neurology following. Will move to rehab once a bed becomes available. Hypertension: Continue lisinopril. Tolerating some higher blood pressures in the post acute CVA phase.
[2020-05-20] MEDS: Atorvastatin Calcium 40 MG TAB PO SCH (20:31)
[2020-05-20] MEDS: Insulin Glargine 10 UNITS in Pre-Filled Syringe 1 EACH SC SCH (20:32)
[2020-05-21] MEDS: Sodium Chloride 0.9% 1,000 ML IV SCH ×2 (00:06→20:27)
[2020-05-21] MEDS: HumaLOG 300 UNITS/3 ML VIAL SC PRN ×2 (06:20→15:15)
[2020-05-21] MEDS: Lisinopril 20 MG TAB PO SCH (09:59)
[2020-05-21] MEDS: Aspirin 325 mg Enteric Coated Tablet PO SCH (09:59)
[2020-05-21] MEDS: metFORMIN 500 MG TAB PO SCH ×2 (10:00→20:26)
[2020-05-21] MEDS: Enoxaparin Sodium 30 MG/0.3 ML SYRINGE SC SCH (10:00)
--- NOTE | 2020-05-21 12:47 | PDOC.HOSPP ---
- Subjective Encounter Date: 05/21/20 Subjective: NEUROLOGY PROGRESS NOTE Patient oriented to person and place. - Objective Vital Signs & Weight: Vital Signs (12 hours) Temp Pulse Resp BP BP Pulse Ox 05/21/20 11:43 98.4 F 81 16 153/73 H 97 05/21/20 09:59 146/66 H 05/21/20 07:55 98.5 F 72 16 171/74 H 98 05/21/20 04:00 98.1 F 77 20 169/86 H 96 Weight Admit Weight 130 lb 6.992 oz Weight 130 lb 6.992 oz I&O: 05/20/20 05/21/20 05/22/20 06:59 06:59 06:59 Intake Total 455 2439 320 Output Total 376 1520 Balance 79 919 320 Result Diagrams: 05/19/20 04:39 05/19/20 04:39 Additional Labs: Accuchecks 05/21/20 05/20/20 05/20/20 06:14 20:44 17:08 POC Glucose 160 H 110 173 H 05/20/20 05/20/20 05/20/20 10:40 05:31 02:11 POC Glucose 130 H 177 H 161 H 05/19/20 05/19/20 05/19/20 20:25 16:46 10:23 POC Glucose 183 H 141 H 250 H 05/19/20 05/18/20 05/18/20 06:09 21:45 16:34 POC Glucose 187 H 226 H 180 H 05/18/20 05/18/20 10:45 05:23 POC Glucose 226 H 192 H Radiology Reviewed by me: Yes EKG Reviewed by me: Yes Hospitalist ROS - Review of Systems ROS unobtainable: due to mental status (speech deficits) - Medication Medications: Active Medications Generic Name Dose Route Start Last Admin Trade Name Freq PRN Reason Stop Dose Admin Aspirin 325 mg 05/16/20 09:00 05/21/20 09:59 Ecotrin PO 325 mg DAILY LORIN Administration Atorvastatin Calcium 80 mg 05/15/20 21:00 05/20/20 20:31 Lipitor PO 80 mg HS LORIN Administration Enoxaparin Sodium 30 mg 05/17/20 09:00 05/21/20 10:00 Lovenox SC 30 mg 0900 LORIN Administration Hydralazine HCl 10 mg 05/16/20 11:56 05/20/20 12:47 Apresoline SLOW IVP 10 mg Q4H PRN Administration Blood Pressure SBP>160 Sodium Chloride 1,000 mls @ 50 mls/hr 05/18/20 07:45 05/21/20 00:06 Normal Saline 0.9% IV 1,000 mls .Q20H LORIN Administration Insulin Glargine 10 units/ 0.1 mls @ 0 mls/hr 05/18/20 21:00 05/20/20 20:32 Miscellaneous Medication SC 0.1 mls HS LORIN Administration Insulin Human Lispro 0 units 05/15/20 18:14 05/21/20 06:20 Humalog SC 2 unit .MILD SLIDING SCALE PRN Administration Mild Correctional Scale Labetalol HCl 20 mg 05/18/20 07:36 05/21/20 00:15 Normodyne SLOW IVP 20 mg Q4H PRN Administration SBP > 180 and HR >/= 70 Lisinopril 40 mg 05/17/20 09:00 05/21/20 09:59 Zestril PO 40 mg DAILY LORIN Administration Metformin HCl 1,000 mg 05/15/20 21:00 05/21/20 10:00 Glucophage PO 1,000 mg BID LORIN Administration Ondansetron HCl 4 mg 05/18/20 07:36 05/19/20 09:48 Zofran IVP 4 mg Q6H PRN Administration Nausea/Vomiting Sodium Chloride 10 ml 05/15/20 15:41 05/19/20 21:03 Flush - Normal Saline IVF 10 ml PRN PRN Administration Saline Flush - Exam General Appearance: awake alert Eye: PERRL ENT: normocephalic atraumatic Neck: supple Heart: RRR Respiratory: CTAB Gastrointestinal: soft Extremities: no cyanosis Skin: normal turgor Neurological: facial droop, hemiplegia, speech deficit Neurological - other findings: right heniparesis Psychiatric: normal affect, normal behavior, oriented to person, oriented to place Hosp A/P (1) Acute CVA (cerebrovascular accident) Code(s): I63.9 - CEREBRAL INFARCTION, UNSPECIFIED Status: Acute (2) Hypertension Code(s): I10 - ESSENTIAL (PRIMARY) HYPERTENSION Status: Acute (3) Hyperlipidemia Code(s): E78.5 - HYPERLIPIDEMIA, UNSPECIFIED Status: Acute - Plan PT/OT, speech therapy 74 year old with right hemiparesis and receptive aphasia. Imaging positive for acute stroke. No acute issues overnight. Stroke work up completed. Clinically stable. Awaiting for discharge to rehab pending bed availability MRI Brain showed acute left WU infarction. Carotid dopplers did not reveal hemodynamically significant stenosis. 2D Echo did not show thrombus or PFO. EF 50-55%. Continue aspirin and high intensity statin for secondary stroke prevention Continue Telemetry. Strict control of BP. Continue home medications. PT/OT/Speech. EEG reviewed and was negative for seizure activity. Continue medical management per primary team. Plan discussed during Stroke rounds.
[2020-05-21 15:54] VITALS: BP 147/76; TEMP 98.6
[2020-05-21] MEDS: Atorvastatin Calcium 40 MG TAB PO SCH (20:27)
[2020-05-21] MEDS: Insulin Glargine 10 UNITS in Pre-Filled Syringe 1 EACH SC SCH (20:27)
--- NOTE | 2020-05-22 02:03 | DIS ---
DATE OF ADMISSION: 05/15/2020 DATE OF DISCHARGE: 05/21/2020 DISCHARGE DIAGNOSES: 1. Acute cerebrovascular accident with partial right hemiplegia. 2. Diastolic dysfunction. 3. Diabetes mellitus. 4. Hypertension. HISTORY OF PRESENT ILLNESS: This patient is a 74-year-old female, who presented via the Emergency Department with right-sided weakness. The patient has a history of hypertension, diabetes, and was brought by her daughter to the Emergency Department with right-sided weakness and some expressive aphasia. Her workup in the Emergency Department included a brain CT with no acute abnormality. Because of fall she suffered at home, she had a CT of the C-spine, which showed the numerous thyroid nodules, but nothing acute. HOSPITAL COURSE: The patient was outside the window for Interventional tPA, so she was admitted to the stroke floor. Started on aspirin. She was already on statin. She had consult from PT, OT, Speech Therapy, and Neurology. The patient had a MRI of the brain, which showed acute left WU infarct. She also had an echocardiogram revealing a normal ejection fraction with some suggestion of diastolic dysfunction. Carotid Dopplers showed minimal thickening and mild echogenic plaque by ultrasound with no significant stenosis. She continued to work with physical therapy and occupational therapy and was able to have no significant dietary restrictions. Once stable, she was felt appropriate for inpatient rehab. The patient was evaluated and accepted and waited several days to ultimately get a bed assigned. PHYSICAL EXAMINATION: VITAL SIGNS: On the day of discharge; temperature is 98.4, pulse 81, respirations 16, O2 saturation 97% on room air, and blood pressure 153/73. GENERAL: She was awake and alert, pleasant, cooperative, and she had no specific complaints. HEART: Regular. LUNGS: Clear. ABDOMEN: Benign. NEUROLOGIC: Revealed some movement distally in both the right upper and lower extremities with more proximal muscle weakness. DISPOSITION: The patient will be discharged to [facility]. DIET: She will be on a heart healthy, diabetic diet. ACTIVITY: As tolerated. MEDICATIONS: Include; 1. Atorvastatin 80 mg daily. 2. Metformin 1000 mg b.i.d. 3. Tylenol 500 mg q.6 hours p.r.n. 4. Aspirin 325 daily. 5. Dulcolax 10 mg p.r.n. constipation. 6. Calcium p.r.n. 7. Lovenox 30 units subcu daily. 8. Lantus 10 units subcu at bedtime. 9. Zestril 40 mg a day. 10. Imodium p.r.n. 11. Claritin 10 mg p.o. p.r.n. 12. Senokot p.r.n. FOLLOWUP: The patient will follow up with the providers at the [facility]. After discharge, she should follow up with the [facility]. She can return to the hospital at anytime she has a need to do so. Job ID: [id number]
== END 2020-05-21 21:20 | DRG 65 ==
LOC: ERS 10:26 → 2SE 14:58
PROVIDERS: ADMIT Internal Medicine; ATTEND Internal Medicine
DX: I63.522 Cerebral infarction due to unspecified occlusion or stenosis of left anterior cerebral artery (principal); G81.91 Hemiplegia, unspecified affecting right dominant side; E87.1 Hypo-osmolality and hyponatremia; Z20.828 Contact with and (suspected) exposure to other viral communicable diseases; R40.2362 Coma scale, best motor response, obeys commands, at arrival to emergency department; R40.2142 Coma scale, eyes open, spontaneous, at arrival to emergency department; R40.2242 Coma scale, best verbal response, confused conversation, at arrival to emergency department; E83.42 Hypomagnesemia; R29.709 NIHSS score 9; R29.810 Facial weakness; R47.1 Dysarthria and anarthria; E11.22 Type 2 diabetes mellitus with diabetic chronic kidney disease; I12.9 Hypertensive chronic kidney disease with stage 1 through stage 4 chronic kidney disease, or unspecified chronic kidney disease; R47.01 Aphasia; N18.3 Chronic kidney disease, stage 3 (moderate); Z79.84 Long term (current) use of oral hypoglycemic drugs; Z79.899 Other long term (current) drug therapy
CPT/HCPCS: 36415; 36416; 51701; 70450; 70551; 71045; 80048; 80053; 80061; 81003; 82553; 83036; 83605; 83735; 83880; 84443; 84484; 85025; 86140; 87040; 87086; 87324; 87449; 93005; 93306; 93880; 95712; 95816; 95819; 95957; 96365; J0360; J1650; J1815; J2405; J3475; U0002

== ENCOUNTER 2020-07-07 14:44 | Inpatient (IN) | payer MEDICARE, MEDICAID, OTHER ==
[2020-07-07 15:28] LABS: #Lymphocytes 1.3 thou/uL (1.20-3.40); #Monocytes 0.5 thou/uL (0.11-0.59); #Neutrophils 12.4 thou/uL (1.40-6.50); %Eosinophils 0.1 % (0.0-10.0); %Lymphocytes 8.9 % (21.0-51.0); %Monocytes 3.2 % (0.0-10.0); %Neutrophils 87.8 % (42.0-75.0); Hemoglobin 10.7 g/dL (12.0-16.0); Mean Corpuscular HGB CONC 31.2 g/dL (32.0-36.0); Mean Corpuscular Hemoglobin 28.1 pg (27.0-31.0); Mean Corpuscular Volume 89.8 fL (78.0-98.0); Mean Platelet Volume 8.7 fL (7.4-10.4); Platelet Count 370 thou/uL (130-400); RBC Distribution Width 14.6 % (11.5-14.5); Red Blood Cell (RBC) Count 3.81 mill/uL (4.20-5.40); White Blood Cell (WBC) Count 14.1 thou/uL (4.8-10.8)
--- NOTE | 2020-07-07 15:44 | RAD ---
XR Chest 1 View Portable HISTORY: Altered mental status COMPARISON: 05/15/2020 FINDINGS: The heart size is normal. The lungs are well expanded without focal areas of consolidation, pneumothorax or pleural effusions. IMPRESSION: No radiographic evidence of acute cardiopulmonary process.
[2020-07-07] MEDS ORDERED: Cefepime 2 GM VIAL ONE (15:46)
[2020-07-07] MEDS ORDERED: Vancomycin HCl 1.25 GM in Sodium Chloride 0.9% 250 ML 250 ML IVPB SCH (16:00)
[2020-07-07 16:05] LABS: Actual Bicarbonate (HCO3a) 11.1 mEq/L (22-28); Analyzer IN Cardio ER; Base Excess (BEa) -12.6 mEq/L (-2.0 to +3.0); Calcium, Ionized (arterial) 1.18 mmol/L (1.12-1.30); Carboxyhemoglobin (COHb) 0.3 gm% (0.0-3.0); Hemoglobin (Hb) 9.2 g/dL (12.0-16.0); O2 Tension (PaO2), arterial 140.7 mmHg (> 70.0); Potassium - ABG Lab 4.79 mmol/L (3.70-5.30); pH, Arterial 7.37 (7.35-7.45)
[2020-07-07 16:10] LABS: Lipase 69 U/L (8-78); Phosphorus 5.3 mg/dL (2.3-4.7)
[2020-07-07 16:11] LABS: ALT (SGPT) 42 U/L (8-55); AST (SGOT) 57 U/L (5-34); Albumin 2.7 g/dL (3.4-4.8); Alkaline Phosphatase 106 U/L (40-110); Anion Gap 25 mmol/L (10-20); BUN (Urea Nitrogen) 66 mg/dL (9.8-20.1); Bilirubin, Total 0.5 mg/dL (0.2-1.2); CK (CPK) 202 U/L (29-168); Calc. Creatinine Clearance 0 mL/min (70-130); Calcium 8.6 mg/dL (7.8-10.44); Carbon Dioxide 12 mmol/L (23-31); Chloride 112 mmol/L (98-107); Estimated GFR-MDRD 15; Globulin 3.5 g/dL (2.4-3.5); Magnesium 2.6 mg/dL (1.6-2.6); Potassium 5.6 mmol/L (3.5-5.1); Protein, Total 6.2 g/dL (6.0-8.3); Sodium 143 mmol/L (136-145)
[2020-07-07 16:13] LABS: ALV-art Gradient -15.845 (0-20); CO2 Tension 19.9 mmHg (35.0-45.0); Puncture Site LRA
[2020-07-07 16:17] LABS: Glucose 596 mg/dL (83-110)
[2020-07-07 16:29] LABS: Bacteria/HPF 4+ HPF (None Seen); Bilirubin Negative (Negative); Blood, Urine 2+ (Negative); Clarity Extra Turbid (Clear); Glucose, Urine (Dipstick) Normal (Negative); Ketone, Urine Negative (Negative); Leukocyte 500 Leu/uL (Negative); Nitrite Negative (Negative); Protein, Urine (Dipstick) 50 mg/dL (Neg-Trace); RBC/HPF Greater than 50 HPF (0-3); Specific Gravity, Urine 1.012 (1.002-1.036); Urobilinogen Normal mg/dL (Less than 2); WBC/HPF Greater than 50 HPF (0-3)
[2020-07-07 16:33] LABS: CKMB 2.8 ng/mL (0-6.6)
--- NOTE | 2020-07-07 16:36 | CT ---
CT Brain WO Con: 07/07/2020 2:57 PM CLINICAL HISTORY: Altered mental status. IMAGING TECHNIQUE: Multiple CT images were obtained of the brain without IV contrast. COMPARISON: CT the brain without contrast dated June 10, 2020 MR the brain dated May 16, 2020 FINDINGS: BRAIN: Evidence of acute infarct: None. Evidence of chronic ischemic change:There is evolutionary changes involving the left WU distribution infarct seen on the prior MR dated May 16, 2020. There are linear regions of increased density seen along the cortical margins of the left WU distribution infarcts suspicious for hemosiderin stai mathew. There is stable encephalomalacia involving the anterior left temporal lobe. There is generalized cerebral atrophy. There is stable chronic small vessel white matter ischemic change. Evidence of intracranial hemorrhage: None. Evidence of midline shift: Third ventricle and septum pellucidum are midline. Ventricles: Normal. No hydrocephalus. SKULL: Intact. VISUALIZED PARANASAL SINUSES: Clear. MASTOID AIR CELLS: Clear. EXTRACRANIAL SOFT TISSUES: Normal. IMPRESSION: 1. No acute intracranial abnormality. 2. Evolutionary changes involving the left WU distribution infarct seen on the MR examination dated May 16, 2020. There are linear regions of increased density along the margin of the left WU distribution infarcts suspicious for cortical hemosiderin staining. 3. Stable encephalomalacia involving the anterior left temporal lobe. 4. Stable generalized cerebral atrophy
[2020-07-07] MEDS ORDERED: Insulin Regular 100 units/100 ml in NS IVPB SCH (16:45)
[2020-07-07] MEDS ORDERED: Ondansetron PF 4 MG/2 ML Vial IVP PRN (17:23)
[2020-07-07] MEDS ORDERED: Dextrose 5% in Water 1,000 ML IV PRN (17:23)
[2020-07-07] MEDS ORDERED: Acetaminophen 650 MG Suppository PR PRN (17:23)
[2020-07-07] MEDS ORDERED: Acetaminophen 325 MG TAB PO PRN (17:23)
[2020-07-07] MEDS ORDERED: Dextrose 50% Abboject 50 ML SYRINGE SLOW IVP PRN (17:23)
[2020-07-07] MEDS ORDERED: Guaifenesin DM 100-10/5 ML UDCUP PO PRN (17:23)
[2020-07-07] MEDS ORDERED: Calcium Carbonate 500 MG ChewTAB PO PRN (17:23)
[2020-07-07] MEDS ORDERED: HumaLOG 300 UNITS/3 ML VIAL SC PRN ×2 (17:23)
[2020-07-07] MEDS ORDERED: Insulin Regular 300 UNITS/3 ML VIAL ONE (17:31)
--- NOTE | 2020-07-07 18:10 | HP ---
REASON FOR ADMISSION: Severe sepsis with shock, urinary tract infection, hypothermia with temperature of 95 degrees on arrival, acute kidney injury, stage IV decubitus ulcer present on admission, and functional quadriparesis. HISTORY OF PRESENTING ILLNESS: Please note, majority of this history is obtained by talking to the patient's daughter, Ms. Reinoso; ER physician, Dr. Ventura; nurse practitioner, Ms. Spaulding; and prior medical records as the patient is not oriented at all. She was sent over from [facility] for increasing confusion. On arrival, the patient had a temperature of 95 degrees and systolic blood pressures were 60s. She was given 30 mL/kg normal saline bolus and was also given cefepime and vancomycin in the ER. Has a white count of 14, serum bicarb of 12, serum glucose of 596, lactic acid of 6.8, creatinine of 3 with very turbid purulent urine on presentation. The patient tries to talk one or two words in Samoan, but soon trails off and goes back to sleep with eyes closed. She also was also found to have had a large stage IV sacral decubitus. She is having profuse diarrhea as well. PAST MEDICAL AND SURGICAL HISTORY: 1. History of recent left WU stroke with right hemiparesis and the patient has contractures on the other extremities as well. Very poor functional status with the [facility]. 2. Diabetes mellitus, type 2. 3. Dyslipidemia. 4. Hypertension. 5. Hysterectomy. 6. GERD. 7. Chronic anemia. PERSONAL HISTORY: Cannot be obtained. Per prior records, no alcohol or drug use. No smoking history. She is currently a resident of [facility]. FAMILY HISTORY: Cannot be obtained as the patient is not oriented. CURRENT MEDICATIONS: Per [facility] records, the patient is on: 1. Actos 30 mg p.o. daily. 2. Glimepiride 2 mg daily. 3. Pepcid 20 mg daily. 4. Metoprolol 25 mg twice daily. 5. Vitamin C 500 mg twice daily. 6. Zinc sulfate 220 mg daily. 7. Multivitamin one tablet once daily. 8. Norvasc 5 mg two times daily. 9. Atorvastatin 80 mg daily. 10. Megace 40 mg twice daily. 11. Aspirin 325 mg daily. 12. Lisinopril 5 mg daily. ALLERGIES: NO KNOWN DRUG ALLERGIES. CODE STATUS: I did discuss her findings with Ms. Arleth Limon, the patient's daughter and POA. She wants her mother to be a do not attempt to resuscitate because this is what her mom wanted per Ms. Reinoso. REVIEW OF SYSTEMS: Cannot be obtained as the patient is not oriented. PHYSICAL EXAMINATION: GENERAL: The patient is a 74-year-old female who is currently obtunded. VITAL SIGNS: Blood pressure 90/60 and on arrival was 60/40, pulse 92 per minute, respiratory rate 26 per minute, temperature 95 degrees on arrival, and saturating 100% on room air. NECK: Supple. No elevated JVP. EYES: Extraocular muscles intact. Pupils sluggish, but reacting to light. ORAL CAVITY: Mucous membranes are dry. No exudates or congestion. CARDIOVASCULAR SYSTEM: S1 and S2 heard. Tachycardic. RESPIRATORY SYSTEM: Air entry 1+ bilateral. Scattered rhonchi plus bilateral. ABDOMEN: Soft. Bowel sounds heard. No tenderness, rigidity, or guarding. The patient had profuse brown-colored diarrhea. She has a Ricci catheter with urine being purulent. EXTREMITIES: The patient has contractures of all 4 extremities. She has right hemiplegia in the past and currently has contractures on the left as well. Peripheral pulses are barely palpable with current systolic blood pressures in the 90s. The patient has stage IV sacral decubitus, which was present on admission. No other ischemic ulcers seen. CENTRAL NERVOUS SYSTEM: The patient has right hemiplegia and also has contractures on the left upper and lower extremities as well. She has flexion contracture of left knee, bent at around 30 degrees. She also has extension contracture of her elbow, left upper elbow. Her fingers are in a flexed fist position, contracted. PSYCHIATRIC: Cannot be assessed as the patient is not oriented. LABORATORY DATA: EKG done shows normal sinus rhythm at 93 beats per minute, there is incomplete RBBB seen. Chest x-ray done shows no acute cardiopulmonary process. CT brain without contrast shows no acute intracranial abnormality. There is evolutionary change of prior left WU distribution infarct. There is also stable encephalomalacia seen in the anterior left temporal lobe, generalized cerebral atrophy seen. White count of 14, hemoglobin and hematocrit 10 and 34, platelet count 370, and MCV is 89 with 87% neutrophils. Blood gas done shows a pH 7.37, pCO2 of 19, pO2 of 140. Serum bicarb is 15, BUN is 66, creatinine 3.0, and serum glucose 596. AST 57, ALT 42, and alkaline phosphatase 106. Lactic acid 6.8. Phosphorus is 5.3, magnesium 2.6. Albumin is low at 2.7. Troponin-I 0.03. Lipase is 60. UA is strongly positive for UTI. Beta-hydroxybutyrate is 0.29 mmol/L. CLINICAL IMPRESSION AND PLAN: The patient will be admitted to [facility] for severe septic shock, likely from urinary tract infection. She is also severely dehydrated with acute kidney injury. The patient has stage IV sacral decubitus. We will obtain Wound Care consultation, and if needed, surgical consultation for debridement. She has severe hyperglycemia and we will place her on Lantus 35 units subcu twice daily along with aggressive Humalog coverage. She will be on vancomycin, cefepime, and Flagyl. We will continue her aspirin and Lipitor as before. COVID-19 PCR will be done as well. Her overall prognosis is very poor. I have discussed these findings with . Arleth Limon, the patient's daughter. She is aware of her poor prognosis. If she were to worsen in the next 24 hours, she will be transitioned to [facility]. She was earlier on [facility]. She is also a do not attempt to resuscitate for now. Job ID: [id number]
[2020-07-07 18:38] LABS: Lactic Acid 4.8 mmol/L (0.5-2.2)
[2020-07-07] MEDS ORDERED: Insulin Glargine 35 UNITS in Pre-Filled Syringe 1 EACH SC SCH ×2 (21:00→23:00)
[2020-07-07] MEDS ORDERED: Atorvastatin Calcium 40 MG TAB PO SCH (21:00)
[2020-07-07] MEDS: Lactated Ringer's 1,000 ML IV SCH (22:31)
[2020-07-07] MEDS: METRONIDAZOLE IVPB SCH (22:31)
[2020-07-07 22:47] VITALS: BMI 21.9
[2020-07-08] MEDS: Lactated Ringer's 1,000 ML IV SCH ×2 (01:19→09:51)
[2020-07-08 03:57] LABS: Hemoglobin A1c 9.2 % (4.0-6.0)
[2020-07-08 04:09] LABS: Anion Gap 15 mmol/L (10-20); BUN (Urea Nitrogen) 55 mg/dL (9.8-20.1); Calc. Creatinine Clearance 18 mL/min (70-130); Calcium 7.9 mg/dL (7.8-10.44); Carbon Dioxide 12 mmol/L (23-31); Chloride 123 mmol/L (98-107); Estimated GFR-MDRD 22; Glucose 242 mg/dL (83-110); Potassium 3.7 mmol/L (3.5-5.1); Sodium 146 mmol/L (136-145)
[2020-07-08] MEDS: Cefepime 1 GM in Sodium Chloride 0.9% 100 ML IVPB SCH ×2 (04:57→17:04)
[2020-07-08 05:12] LABS: Band 13 % (5-11); Hemoglobin 8.4 g/dL (12.0-16.0); Hypochromia SLIGHT = 6-15 cells (100X) (0-5/hpf); Lymphocytes 4 % (21-51); MDiff Complete? YES; Mean Corpuscular HGB CONC 30.2 g/dL (32.0-36.0); Mean Corpuscular Hemoglobin 26.8 pg (27.0-31.0); Mean Corpuscular Volume 88.9 fL (78.0-98.0); Mean Platelet Volume 8.8 fL (7.4-10.4); Metamyelocyte 1 % (0-0); Monocytes 3 % (0-10); Neutrophil 79 % (42-75); Platelet Count 293 thou/uL (130-400); Platelet Morphology Comment Appears Adequate; RBC Distribution Width 14.5 % (11.5-14.5); Red Blood Cell (RBC) Count 3.13 mill/uL (4.20-5.40); White Blood Cell (WBC) Count 20.6 thou/uL (4.8-10.8)
[2020-07-08] MEDS: METRONIDAZOLE IVPB SCH ×2 (05:48→13:12)
[2020-07-08] MEDS ORDERED: Aspirin 325 mg Enteric Coated Tablet PO SCH (09:00)
[2020-07-08] MEDS ORDERED: Insulin Glargine 35 UNITS in Pre-Filled Syringe 1 EACH SC SCH (09:00)
[2020-07-08] MEDS ORDERED: Enoxaparin Sodium 30 MG/0.3 ML SYRINGE SC SCH (09:00)
[2020-07-08 12:17] VITALS: TEMP 98.7
--- NOTE | 2020-07-08 12:27 | PDOC.HOSPP ---
- Subjective Encounter Date: 07/08/20 Encounter Time: 09:00 Subjective: awakens to touch, just moans with occasional yes is seen moving right extremities better than left - Objective Vital Signs & Weight: Vital Signs (12 hours) Temp Pulse Resp BP Pulse Ox 07/08/20 11:00 98.7 F 80 16 113/64 100 07/08/20 08:00 99.2 F 99 07/08/20 04:00 98.8 F Weight Weight 112 lb 10.499 oz Most Recent Monitor Data Heart Rate from ECG 75 NIBP 103/53 NIBP BP-Mean 69 Respiration from ECG 13 SpO2 99 I&O: 07/07/20 07/08/20 07/09/20 06:59 06:59 06:59 Intake Total 808 Output Total 405 260 Balance 403 -260 Result Diagrams: 07/08/20 03:37 07/08/20 03:37 Additional Labs: Accuchecks 07/08/20 07/07/20 07/07/20 09:54 22:45 20:57 POC Glucose 83 282 H 290 H 07/07/20 07/07/20 07/07/20 18:46 17:46 15:24 POC Glucose 369 H 418 H 541 H Hospitalist ROS - Medication Medications: Active Medications Generic Name Dose Route Start Last Admin Trade Name Freq PRN Reason Stop Dose Admin Aspirin 325 mg 07/08/20 09:00 07/08/20 09:49 Ecotrin PO Not Given DAILY COUNT INCLUDES THE [facility] Atorvastatin Calcium 80 mg 07/07/20 21:00 07/07/20 22:24 Lipitor PO Not Given HS COUNT INCLUDES THE [facility] Enoxaparin Sodium 30 mg 07/08/20 09:00 07/08/20 09:50 Lovenox SC Not Given 09 LORIN Cefepime HCl 1 gm/ Sodium 100 mls @ 200 mls/hr 07/08/20 04:00 07/08/20 04:57 Chloride IVPB 100 mls 0400,1600 LORIN Administration Lactated Ringer's 1,000 mls @ 125 mls/hr 07/07/20 17:30 07/08/20 09:51 Lactated Ringer's IV Not Given .Q8H LORIN Metronidazole 250 mg/ Device 50 mls @ 100 mls/hr 07/07/20 22:00 07/08/20 05: 48 IVPB 50 mls Q8HR LORIN Administration Insulin Glargine 35 units/ 0.35 mls @ 0 mls/hr 07/08/20 09:00 07/08/20 09:50 Miscellaneous Medication SC Not Given BID LORIN Insulin Human Lispro 0 units 07/07/20 17:23 07/08/20 05:48 Humalog SC 6 unit .AGGRESSIVE SLIDING PRN Administration Aggressive Correctional Scale - Exam General Appearance: ill appearing Eye: PERRL, anicteric sclera ENT: no oropharyngeal lesions, dry oral mucosa Neck: supple, no JVD Heart: RRR, no murmur Respiratory: no wheezes, no rales Gastrointestinal: soft, non-tender, non-distended, normal bowel sounds Gastrointestinal - other findings: sacral decubitus Neurological: hemiplegia Hosp A/P (1) Septic shock Code(s): A41.9 - SEPSIS, UNSPECIFIED ORGANISM; R65.21 - SEVERE SEPSIS WITH SEPTIC SHOCK Status: Resolved (2) UTI (urinary tract infection) Status: Acute Qualifiers: Urinary tract infection type: acute cystitis Hematuria presence: without hematuria Qualified Code(s): N30.00 - Acute cystitis without hematuria (3) GOMEZ (acute kidney injury) Code(s): N17.9 - ACUTE KIDNEY FAILURE, UNSPECIFIED Status: Acute (4) H/O: CVA (cerebrovascular accident) Code(s): Z86.73 - PRSNL HX OF TIA (TIA), AND CEREB INFRC W/O RESID DEFICITS Status: Chronic (5) Sacral decubitus ulcer, stage IV Code(s): L89.154 - PRESSURE ULCER OF SACRAL REGION, STAGE 4 Status: Acute (6) Functional quadriplegia Code(s): R53.2 - FUNCTIONAL QUADRIPLEGIA Status: Chronic (7) FTT (failure to thrive) in adult Status: Chronic (8) Moderate protein malnutrition Code(s): E44.0 - MODERATE PROTEIN-CALORIE MALNUTRITION Status: Chronic (9) Hyperlipidemia Code(s): E78.5 - HYPERLIPIDEMIA, UNSPECIFIED Status: Chronic Qualifiers: Hyperlipidemia type: unspecified Qualified Code(s): E78.5 - Hyperlipidemia , unspecified (10) Hypertension Code(s): I10 - ESSENTIAL (PRIMARY) HYPERTENSION Status: Chronic Qualifiers: Hypertension type: essential hypertension Qualified Code(s): I10 - Essential (primary) hypertension - Plan sbp is holding up this am is on iv antibiotics prelim blood cs are -ve has sacral decubitus stage 4 with eschar present on admission d/w daughter this am, she wants [facility] may dc anytime if hospice has set up necessary equipments at home
[2020-07-08 12:30] LABS: SARS-CoV-2 MS2 Positive; SARS-CoV-2 N Gene Negative; SARS-CoV-2 S Gene Negative; SARS-CoV-2 by NAA Not Detected (NotDetected); SARS-CoV-2 orf1ab Negative
--- NOTE | 2020-07-08 16:25 | DIS ---
DATE OF ADMISSION: 07/07/2020 DATE OF DISCHARGE: 07/08/2020 DISCHARGE DISPOSITION: Home with [facility]. PRIMARY DISCHARGE DIAGNOSES: 1. Septic shock on arrival with urinary tract infection and hypothermia. 2. Acute kidney injury. 3. Stage 4 sacral decubitus ulcer present on admission. 4. Functional quadriparesis with the patient being bed bound. 5. History of cerebrovascular accident with right hemiparesis in the past. 6. Diabetes mellitus type 2. 7. Dyslipidemia. 8. Hypertension. 9. Chronic anemia. PROCEDURES DONE DURING HOSPITALIZATION: The patient has had chest x-ray done, which showed no acute cardiopulmonary process. CT of brain showed prior left WU distribution infarct with encephalomalacia. Blood cultures x2, no growth. Stool for C diff negative. Urine culture is pending at the time of discharge. She had a white count of 20, H and H of 8 and 27, platelet count 293 with 79% neutrophils, 13% bands. Discharge BUN and creatinine of 55 and 2.1. Lactic acid 6.8. Initial serum glucose was 596, albumin 2.7. BNP 28. Serum bicarb was 12 on the day of admission. BUN and creatinine were 66 and 3.0 on the day of admission. UA was strongly positive for UTI. COVID-19 PCR was not detected on 07/07/2020. DISCHARGE MEDICATIONS: 1. Levaquin 250 mg p.o. daily for 6 days. 2. Flagyl 250 mg p.o. 3 times daily for 6 days. 3. Aspirin 325 mg p.o. daily. 4. Pioglitazone 15 mg p.o. daily. 5. Multivitamin 1 tablet once daily. 6. Metoprolol 25 mg twice daily. 7. Megace 400 mg twice daily. 8. Lantus 25 units subcu at bedtime. 9. Pepcid 20 mg daily. 10. Atorvastatin 80 mg p.o. at bedtime. 11. Vitamin C 500 mg p.o. daily. 12. Norvasc 5 mg twice daily. ALLERGIES: NO KNOWN DRUG ALLERGIES. DISCHARGE PLAN: The patient to follow up with her hospice physician in 1 week with [facility]. BRIEF COURSE DURING HOSPITALIZATION: The patient initially was transferred from [facility] for worsening mental status, hypotension, and hypothermia. On arrival, the patient was found to be in septic shock with systolic blood pressures in the 60s. Sepsis protocol was followed. She has had pancultures drawn and the patient was placed on broad-spectrum antibiotics in IMCU initially. The patient's daughter, Ms. Arleth Limon, did not want any resuscitation done. Her septic shock had resolved. Her daughter came to visit her this morning and did not want any further measures to be done and they would want her to take home with [facility]. Ms. Sood has severe deconditioning and was bed-bound. She had stage 4 sacral decubitus on arrival. She had history of right hemiparesis and had progressive de[facility] at the [facility]. The patient did not want to live like this per daughter. In view of this, she is being discharge home with [facility]. Please see a [id number] documentation for the day of discharge on [employer] Job ID: [id number]
[2020-07-08 16:26] VITALS: BP 106/65
[2020-07-08] MEDS ORDERED: Vancomycin 1 GM in Premix Bag 1 BAG IVPB SCH (17:00)
--- NOTE | 2020-07-10 14:23 | EKG ---
Test Reason : Blood Pressure : / mmHG Vent. Rate : 093 BPM Atrial Rate : 093 BPM P-R Int : 126 ms QRS Dur : 108 ms QT Int : 380 ms P-R-T Axes : 038 055 042 degrees QTc Int : 472 ms Normal sinus rhythm Incomplete right bundle branch block Borderline ECG Confirmed by REYMUNDO STINSON, ZEFERINO ([id number]), senior technical editor RAÚL MOREIRA ([id number]) on 07/10/2020 2:22:43 PM Referred By: Confirmed By:ZEFERINO DWYER MD
== END 2020-07-08 18:15 | disposition hospice, home (50) | DRG 871 ==
LOC: ERS 14:44 → CCU 22:19 → T4-B 07-08 11:53
PROVIDERS: ADMIT Internal Medicine; ATTEND Internal Medicine
DX: A41.9 Sepsis, unspecified organism (principal); L89.154 Pressure ulcer of sacral region, stage 4; R65.21 Severe sepsis with septic shock; R53.2 Functional quadriplegia; N17.9 Acute kidney failure, unspecified; I69.351 Hemiplegia and hemiparesis following cerebral infarction affecting right dominant side; N30.00 Acute cystitis without hematuria; E44.0 Moderate protein-calorie malnutrition; Z20.828 Contact with and (suspected) exposure to other viral communicable diseases; Z66 Do not resuscitate; Z51.5 Encounter for palliative care; I10 Essential (primary) hypertension; D64.9 Anemia, unspecified; K21.9 Gastro-esophageal reflux disease without esophagitis; E86.0 Dehydration; E11.65 Type 2 diabetes mellitus with hyperglycemia; E78.00 Pure hypercholesterolemia, unspecified; E78.5 Hyperlipidemia, unspecified; Z90.710 Acquired absence of both cervix and uterus; Z74.01 Bed confinement status; Z79.899 Other long term (current) drug therapy; Z79.82 Long term (current) use of aspirin; Z79.84 Long term (current) use of oral hypoglycemic drugs; Z68.22 Body mass index [BMI] 22.0-22.9, adult
CPT/HCPCS: 36415; 36416; 51702; 70450; 71045; 80048; 80053; 81003; 81015; 82010; 82550; 82553; 82805; 83036; 83605; 83690; 83735; 83880; 84100; 84443; 84484; 85025; 87040; 87086; 87324; 87427; 87449; 87635; 93005; 94760; 96365; 96366; 96367; 96375; C9803; J0692; J1815; J3370; J3490; J7050; U0003